=== PATIENT | female | born 1995 | race Caucasian/White ===

== ENCOUNTER → 2017-09-24 11:57 | Outpatient (CLI) | payer BC, SELFPAY ==
[2017-09-24 13:31] LABS: Color, Urine Yellow (Yellow); Glucose, Dipstick Normal (Normal); Ketone-Dipstick Negative (Negative); Leukocyte Esterase-Dipstick 25 /ul (Negative); Nitrite-Dipstick Positive (Negative); Occult Blood-Urine 10 /ul (Negative); Protein-Dipstick Negative (Negative); Specific Gravity, Urine 1.015 (1.002-1.030); Urine Bilirubin Dipstick Negative (Negative); Urine Clarity Sl. Cloudy (Clear); Urine Urobilinogen Normal (Normal); Urine pH 6.5 (5.0 - 8.0)
[2017-09-24 13:43] LABS: Amphetamine Urine VISTA NEGATIVE (<1000 ng/mL); Barbiturate Urine VISTA NEGATIVE (< 200 ng/mL); Benzodiazepine Urine VISTA NEGATIVE (< 200 ng/mL); Cocaine Urine VISTA NEGATIVE (< 300 ng/mL); Ecstacy Urine VISTA NEGATIVE (< 500 ng/mL); Methadone Urine VISTA NEGATIVE (< 300 ng/mL); PCP Urine VISTA NEGATIVE (< 25 ng/mL); THC Urine VISTA NEGATIVE (< 50 ng/mL); Vista UDS pH Range 6
[2017-09-24 15:21] LABS: Chlamydia Trachomatis by PCR Negative (Negative); Neisserai gonorrhoeae by PCR Negative (Negative); Probe Check PASS; Sample Adequacy Control PASS; Specimen Processing Control PASS
[2017-09-24 16:04] LABS: Free T3 3.2 pg/mL (2.18-3.98); T4 Free Direct 1.13 ng/dL (0.76-1.46); Thyroid Stim Hormone (TSH) 4.59 uIU/mL (0.358-3.74)
[2017-09-24 16:22] LABS: Absolute Neutrophil Count 6.5 X10^3/uL (2.0-7.7); Basophil# 0.02 X10^3/uL; Basophil% 0.2 % (0-1); Eosinophil# 0.07 X10^3/uL; Eosinophils% 0.8 % (0-5); Hematocrit 35.6 % (37-47); Hemoglobin 11.5 g/dl (12.0-15.0); Mean Corp Hgb Conc 32.3 g/gl (32-36); Mean Corpuscular Volume 68.1 fL (81-99); Mean Platelet Vol. 11.7 fl (6.2-12.0); Monocyte# 0.72 X10^3/uL; Monocyte% 8.2 % (0-10); Neutrophil % 74.2 % (47-70); Platelet Count 328 K/mm3 (150-450); RBC Distribution Width CV 15.7 % (11.6-14.6); RBC Distribution Width SD 38.5 fl (35.1-43.9); Red Blood Count 5.23 M/mm3 (4.2-5.4); White Blood Count 8.8 K/mm3 (4.4-11.0)
[2017-09-24 16:24] LABS: POSITIVE COUNT NO; POSITIVE DIFFERENTIAL NO; POSITIVE MORPHOLOGY NO
[2017-09-24 16:44] LABS: HIV - WCH Non-Reactive (Nonreactive); Rubella IgG 80.2 IU/mL
[2017-09-26 13:16] LABS: HEPATITIS B SURFACE AG Negative (Negative); Hep C Antibodies 0.2 s/co ratio (0.0-0.9)
[2017-10-01 01:08] LABS: Prenatal RPR NONREACTIVE (NONREACTIVE)
== END ==
PROVIDERS: Visit Provider Obstetrics & Gynecology
DX: Z34.81 Encounter for supervision of other normal pregnancy, first trimester (principal); Z12.4 Encounter for screening for malignant neoplasm of cervix; Z11.3 Encounter for screening for infections with a predominantly sexual mode of transmission
CPT/HCPCS: 36415; 80307; 81002; 84439; 84443; 84481; 85025; 86703; 86762; 86803; 87340; 87491; 87591; 88175; G0145

== ENCOUNTER → 2017-12-08 12:06 | Outpatient (CLI) | payer BC, SELFPAY | PROVIDERS: Visit Provider Obstetrics & Gynecology | DX: R30.0 Dysuria (principal) | CPT/HCPCS: 87086; 87088; 87186 ==

== ENCOUNTER → 2018-02-09 10:50 | Outpatient (CLI) | payer BC, SELFPAY ==
[2018-02-09 16:20] LABS: Glucose Challenge Gest 1H 50g 139 mg/dL (70-140)
[2018-02-09 16:28] LABS: Hematocrit 26.9 % (37-47); Hemoglobin 7.7 g/dl (12.0-15.0); Mean Corp Hgb Conc 28.6 g/gl (32-36); Mean Corpuscular Hgb 18.7 pg (27.0-32.0); Mean Corpuscular Volume 65.3 fL (81-99); Mean Platelet Vol. 10.2 fl (6.2-12.0); Platelet Count 192 K/mm3 (150-450); Red Blood Count 4.12 M/mm3 (4.2-5.4); White Blood Count 9.8 K/mm3 (4.4-11.0)
[2018-02-09 16:32] LABS: Scan Indicated on CBC? Y/N YES- FLAGS NOTED
[2018-02-09 17:16] LABS: Differential Comment SCANNED
== END ==
PROVIDERS: Visit Provider Obstetrics & Gynecology
DX: Z34.83 Encounter for supervision of other normal pregnancy, third trimester (principal)
CPT/HCPCS: 36415; 82950; 85027

== ENCOUNTER 2018-03-29 16:40 | Inpatient (IN) | payer BC, SELFPAY ==
[2018-03-29] VITALS (11 sets, daily range): BP systolic 75–132; BP diastolic 52–89; PULSE 50–87; RESP 16–20; TEMP 36.1–36.6; O2SAT 95–99; BMI 29.8
[2018-03-29] MEDS: Betamethasone/Betamethasone 30 MG/5 ML Vial 12 MG IM (16:12)
[2018-03-29] MEDS: Lactated Ringers 1,000 ML 50 ML IV (17:00)
[2018-03-29 17:40] LABS: Group B Strep DNA By PCR Negative (Negative)
[2018-03-29 17:42] LABS: Internal Control PASS; Probe Check PASS; Specimen Processing Control PASS
[2018-03-29 17:51] LABS: Hemoglobin 9.8 g/dl (12.0-15.0); Mean Corp Hgb Conc 29.7 g/gl (32-36); Mean Corpuscular Hgb 20.9 pg (27.0-32.0); Mean Corpuscular Volume 70.2 fL (81-99); Platelet Count 158 K/mm3 (150-450); RBC Distribution Width CV 26.8 % (11.6-14.6); RBC Distribution Width SD 65.6 fl (35.1-43.9); White Blood Count 7.9 K/mm3 (4.4-11.0)
[2018-03-29 17:56] LABS: Scan Indicated on CBC? Y/N YES- FLAGS NOTED
[2018-03-29 18:09] LABS: Differential Comment SCANNED
--- NOTE | 2018-03-29 18:14 | PCM.PN.BLA ---
Progress Note 36 1/7 wk EGA Sent in from ofc due to ? EFM/ NST there. CC of dec FM. IV fluid bolus given and attempted Acoustic stim without response from fetus. AVSS EFM 120-130s minimal variability. Pseudosinusoidal pattern at times. Several lates noted. Occasional variable CX favorable. UCs noted, irregular. A/P; 36 1/7 wk nonreassuring FHT. Minimal variability. no response to accoustic stim. Recommended primary C/S for nonreassuring heart rate tracing. BPP in ofc 01/02. Betamethasone given x one dose.
[2018-03-29] MEDS: Sodium Citrate/Citric Acid 30 ML UDC PO (18:26)
[2018-03-29] MEDS: Lactated Ringers 1,000 ML 999 ML IV (18:27)
--- NOTE | 2018-03-29 18:46 | PCM.DCCSEC ---
Discharge Diet: No Restrictions Discharge Activity: May not drive while taking narcotic pain medications., May Shower, May Take a Tub Bath Return to work on:: 05/16/18 May resume sexual activity in: 4-6 weeks Lifting Restrictions: 20 pounds Additional Activity Instructions:: Nothing in the vagina for 4-6 weeks. You may return to work/school in 6 weeks. Change Dressing in (Days):: 4 Remove Dressing in (days):: 4 Cleanse incision/area with: Soap & Water, Keep Dressing Clean & Dry Additional Instructions: If you experience any of the following, contact your healthcare provider. Bleeding that soaks a pad every hour for 2 hours Fever 100.4 or higher Unrelieved incision or abdominal pain Swelling, redness, discharge or bleeding from your incision Problems urinating (including inability to urinate or burning while urinating). Visual changes Severe headache Flu-like symptoms Pain or redness in one of both of your breasts Pain, warmth, tenderness or swelling in your legs, especially the calf area Frequent nausea and vomiting Symptoms of depression or anxiety If you experience any of the following, call 911 or go to the nearest Emergency Room. Chest pain Problems breathing Seizure activity Partial or complete paralysis of a body part, slurred speech, weakness or drooping of the face, or a sudden inability to walk or hold your balance Allergies/Adverse Reactions: Allergies No Known Allergies Allergy (Verified 12/30/15 02:07) Medications to take at Discharge Docusate Sodium [Colace] 100 mg PO DAILY PRN PRN #30 cap 03/29/18 Ferrous Gluconate 324 mg PO TID 03/29/18 Levothyroxine [Synthroid] 50 mcg PO DAILY 03/29/18 Naproxen [Naprosyn] 250 - 500 mg PO TID PRN PRN #30 tab 03/29/18 Oxycodone [Oxyir] 5 - 10 mg PO Q6H PRN PRN 7 Days #20 tablet 03/29/18 Vit No.130/Iron/FA [ Tablet] 1 tablet PO DAILY 03/29/18 The following prescriptions were given: Oxycodone [Oxyir] 5 - 10 mg PO Q6H PRN PRN 7 Days #20 tablet PRN Reason: Mod-Severe Pain (-05/04) Docusate Sodium [Colace] 100 mg PO DAILY PRN PRN #30 cap PRN Reason: Constipation Naproxen [Naprosyn] 250 - 500 mg PO TID PRN PRN #30 tab PRN Reason: Mild-Mod Pain (-12/02) Follow-Up: Call to make an appointment with your doctor for an incision check in 1-2 weeks. You will also need a 6 week post- follow up appointment. Test results from this visit will be discussed in further detail at your follow-up appointment, if applicable. Please Follow Up With: Geoffrey Gregg MD - [phone] When: Call to make an appointment for an incision check in 2 weeks. Primary Care Physician: Care Physician,No Primary [Primary Care Provider] -
[2018-03-29] MEDS: Cefazolin 2 GM in 0.9% Normal Saline 100 ML IV (18:52)
[2018-03-29] MEDS: Oxytocin 30 units/NS 500 ml 30 UNITS/500 ML IV.SOLN 167 UNITS IV (19:00)
[2018-03-29] MEDS: Methylergonovine 0.2 MG/ML Ampul IM (19:04)
--- NOTE | 2018-03-29 19:24 | PCM.OP.BLANK ---
Operative Report Date of Procedure: 03/29/18 Preoperative diagnosis: 36 2/7 wk EGA Nonreassuring FHT, decreased variability. Pseudosinusoidal rhythm , occasional late Unresponsive to interventions including: IV fluids, vibroacoustic stimulation. Postop diagnosis: 36 2/7 wk EGA Nonreassuring FHT, decreased variability. Pseudosinusoidal rhythm , occasional late Unresponsive to interventions including: IV fluids, vibroacoustic stimulation. Anesthesia: Spinal, Alvarado Grant CRNA Surgeon: Neelam Thakkar MD Garden Machinery Mechanic: JOSE Skinner EBL 800 cc Complications: none Drains: Mazariegos draining clear yellow appearing urine Fluids: replacement LR [employer] PRESENT for delivery: Dr. Wahl Findings: At amniotomy, copious clear fluid was noted. Payne viable male in vertex presentation. Baby was noted VERY pale at . Apgars 3/8/9, Baby weight: 6# 7 oz. There was a normal appearing uterus, fallopian tubes and ovaries bilaterally. PATH: Routine cord blood for typing collected. Routine cord gases were sent. Narrative account: After the risks, benefits and alternatives of the procedure were reviewed with the patient, informed consent was obtained. The patient was taken to the Operating room with an IV running, and placed in a seated position on the operating table for placement of the spinal. Once the spinal had been administered, she was briefly frog-legged for Mazariegos catheter placement, and then repositioned to dorsal supine position with leftward displacement of the uterus, and prepped and draped in the usual sterile fashion. Once the spinal was deemed adequate, a Pfannenstiel skin incision was created using the knife . The incision was carried down to the rectus fascia using the knife. The fascia was nicked in the midline. The fascial incision was extended bilaterally using curved Arthur scissors. The superior aspect of the fascial incision was grasped with Nayeli clamps and tented up and the underlying rectus abdominal muscles were dissected free. In a similar manner, the inferior aspect of the facial incision was grasped with Nayeli clamps tented up and the underlying rectus abdominal muscles were dissected free. The rectus abdominis muscles were in the midline and the peritoneum was identified and entered by blunt dissection high in the incision. The peritoneum was stretched laterally and a bladder blade was inserted. A bladder flap was created along the lower uterine segment with Metzenbaum scissors . The uterine incision was then created using Metzenbaum scissors. The operators fingertips were used to extend the uterine incision by blunt dissection in a caudad- cephalad orientation . Copious clear fluid was noted at amniotomy. The vertex was then delivered atraumatically through the incision. The OP and nares were bulb suctioned on the abdomen. The shoulders delivered easily . The cord clamped x two and cut. And the infant was handed off to the nurse awaiting delivery and then to Dr. Wahl immediately due to very poor tone, and extremely pale appearing . The baby had no spontaneous cry. The placenta was then delivered and set aside for later pathology review. The uterus was exteriorized and cleared of clots and debris . The uterine incision was repaired with 1 Vicryl in a running locked fashion. A second imbricating layer was then placed, using 1 Monocryl in running nonlocked fashion. horizontal mattress stitches of 1 Vicryl were placed along the entire incision. Excellent hemostasis was noted. At this point the uterus was returned to the abdominal cavity. The gutters were cleared of clots and debris and the incision at the uterus was inspected. Excellent hemostasis was noted. The peritoneal edges and rectus abdominis muscles were reapproximated in the midline with interrupted vertical mattress stitches of 1 Vicryl. Excellent hemostasis was noted at the subfascial space The fascia was closed in a running nonlocked fashion with a Stratofix. The Subcutaneous fatty tissue was Bovie cauterized as needed for hemostasis. This layer was then reapproximated in a single layer closure of running 3-0 Vicryl to eliminate space. The skin edges were closed in a Subcuticular stitch of 4-0 Monocryl. The incision was cleansed. Cavilon, Steristrips, and Mepilex dressing were applied to the skin . The patient was then transferred to the recovery room bed in stable condition after tolerating the procedure well. Sponge, lap, needle and instrument counts correct times two. Medications given preop and intraoperatively included: Ancef 2 gm IV given long distance operator to the operating room. The patient also received Pitocin given IV after cord clamp, and Toradol 30 mg IV times one. For a complete listing of medications given preop and intraoperatively, please see the anesthesia record.
[2018-03-29] MEDS: Nalbuphine 10 MG/ML Ampul 5 MG IV (21:59)
[2018-03-29] MEDS: Lactated Ringers 1,000 ML 100 ML IV (21:59)
[2018-03-30] VITALS (18 sets, daily range): BP systolic 104–129; BP diastolic 62–85; PULSE 51–78; RESP 16–20; TEMP 36.5–37; O2SAT 94–99
[2018-03-30] MEDS: Ketorolac 30 MG/ML Syringe IV ×4 (01:48→20:22)
[2018-03-30] MEDS: Nalbuphine 10 MG/ML Ampul 5 MG IV (04:02)
[2018-03-30] MEDS: Levothyroxine 50 MCG Tablet PO (05:49)
[2018-03-30 06:21] LABS: Hematocrit 32.8 % (37-47); Hemoglobin 9.8 g/dl (12.0-15.0); Mean Corp Hgb Conc 29.9 g/gl (32-36); Mean Corpuscular Hgb 20.9 pg (27.0-32.0); Mean Corpuscular Volume 69.8 fL (81-99); Platelet Count 156 K/mm3 (150-450); RBC Distribution Width CV 26.4 % (11.6-14.6); RBC Distribution Width SD 64.4 fl (35.1-43.9); White Blood Count 11.6 K/mm3 (4.4-11.0)
[2018-03-30 06:23] LABS: Scan Indicated on CBC? Y/N YES- FLAGS NOTED
[2018-03-30 06:40] LABS: Differential Comment SCANNED
--- NOTE | 2018-03-30 08:08 | PCM.PN.OB ---
Subjective: POD#1 Primary C/S nonreassuring FHT Pt doing OK. Pain control adequate. minimal bleeding. Hoping to go to [facility] today if possible to be with baby. baby transported there after delivery 2/2 severe anemia, Hgb 3. Kleihauer Betke test pending, at [facility]. - Physical Exam General: Alert, Oriented x3, Cooperative, No apparent distress HEENT: Atraumatic Neck: Supple Abdomen: Soft - Fundus firm NT at 2 cm inferior to umbilicus. Skin: Incision - CDI. mepilex dressing in place. no shadow drainage. Neurological: Cranial nerves II-XII grossly intact Psych/Mental Status: Normal Affect Vital Signs Temp Pulse Resp BP Pulse Ox 98.5 F 63 18 122/73 H 97 03/30/18 03:50 03/30/18 06:33 03/30/18 06:33 03/30/18 04:50 03/30/18 06:33 Oxygen Delivery Method Room Air Weight: 83.9 kg Body Mass Index (BMI) 29.8 Intake and Output for Last 24 Hours 03/28/18 03/29/18 03/30/18 23:59 23:59 23:59 Intake Total 200 / 200 1300 / 1300 Output Total 700 / 700 600 / 600 Balance -500 / -500 700 / 700 Laboratory Tests Past 24 Hrs 03/29/18 03/29/18 03/29/18 14:00 17:00 17:00 WBC 7.9 RBC 4.70 Hgb 9.8 L Hct 33.0 L MCV 70.2 L MCH 20.9 L MCHC 29.7 L RDW 26.8 H RDW Differential 65.6 H Plt Count 158 MPV TNP Differential Comment SCANNED Kleihauer-Betke F Hgb Group B Strep DNA Negative Specimen Comment Not Reportable Blood Type B POSITIVE Antibody Screen NEGATIVE 03/29/18 03/30/18 20:15 05:55 WBC 11.6 H RBC 4.70 Hgb 9.8 L Hct 32.8 L MCV 69.8 L MCH 20.9 L MCHC 29.9 L RDW 26.4 H RDW Differential 64.4 H Plt Count 156 MPV Differential Comment SCANNED Kleihauer-Betke F Hgb Pending Group B Strep DNA Specimen Comment Blood Type Antibody Screen Medical Necessity - Tobacco Use Smoking Status: Former smoker Assessment/Plan POD#1 Primary C/S for nonreassuring FHT Stable postop. Incision CDI. Hgb stable from preop. 9.8 gm/dl. which increased during pregancy from the 7.7 g/dl at 28 wks. ? fetomaternal transfusion. Infant at [facility] S/P transfusion for Hgb of 3 g/dl. Kleihauer Betke test pending Inc diet and activity as tolerated. Begin po meds. S/L IV. Needs to be off Toradol and all IV meds to be able to go to [facility], dischg from hospital. Advised of this. D/C Mazariegos for voiding trial. Continue care.
[2018-03-30] MEDS: Ferrous Sulfate 325 MG Tablet PO ×2 (08:17→18:43)
[2018-03-30] MEDS: Lactated Ringers 1,000 ML 100 ML IV (08:54)
[2018-03-30] MEDS: 0.9% Saline Lock 10 ML Syringe IV (20:22)
[2018-03-31] MEDS: Ketorolac 30 MG/ML Syringe IV (02:19)
[2018-03-31] MEDS: 0.9% Saline Lock 10 ML Syringe IV (02:19)
[2018-03-31 02:23] VITALS: BP 131/85; PULSE 67; RESP 18; TEMP 37.1; O2SAT 98
[2018-03-31] MEDS: Levothyroxine 50 MCG Tablet PO (06:30)
--- NOTE | 2018-03-31 07:51 | PCM.PN.OB ---
Subjective: POD#2 Primary C/S for nonreassuring FHT Stable postop. Would like to go home roshni as wants to go to [facility] to be with baby. Still getting Toradol q 6 hrs. - Physical Exam General: Alert, Oriented x3, Cooperative, No apparent distress HEENT: Atraumatic Neck: Supple Abdomen: Soft - Fundus firm NT inferior to umbilicus Skin: Incision - CDI. Mepilex without shadow drainage. Neurological: Cranial nerves II-XII grossly intact Psych/Mental Status: Normal Affect Vital Signs Temp Pulse Resp BP Pulse Ox 98.7 F 67 18 131/85 H 98 03/31/18 02:23 03/31/18 02:23 03/31/18 02:23 03/31/18 02:23 03/31/18 02:23 Oxygen Delivery Method Room Air Weight: 83.9 kg Body Mass Index (BMI) 29.8 Intake and Output for Last 24 Hours 03/29/03/30/18 03/31/18 23:59 23:59 23:59 Intake Total 200 / 200 3449 / 3449 Output Total 700 / 700 2475 / 2475 350 / 350 Balance -500 / -500 974 / 974 -350 / -350 Medical Necessity - Tobacco Use Smoking Status: Former smoker Assessment/Plan POD#2 Primary C/S for nonreassuring FHT Stable postop. Incision CDI. Hgb stable from preop. 9.8 gm/dl. which increased during pregancy from the 7.7 g/dl at 28 wks. ? fetomaternal transfusion. at [facility] S/P transfusion for Hgb of 3 g/dl. Kleihauer Betke test pending Dischg home today if pain control adequate on all po meds. Reviewed incision care. RTO in 2 wk for postop incision check.
--- NOTE | 2018-03-31 07:53 | PCM.DC.SUM ---
Hospital Course and Treatment Operations: - - Primary low transverse C/S Summary of Care Provided: The patient is a 22 year old female at term presented to ofc with CC of no movement. nonreassuring NST in ofc, with BPP of 6/10. Sent to OB for monitoring. Continued nonreassuring FHR tracing, with dec variability. no accelerations. No response to IV fluids or vibroacoustic stimulator. Pseudosinusoidal pattern with occasional late or variable. Advised proceed to C/S . Procedure uncomplicated with clear copious fluid at amniotomy. Payne viable , very pale appearing male Ap Dr. Schultz, resp therapy all present for delivery. [facility] with Hgb of 3 g/dl. Kleihauer Betke pending. Patent's postoperative course uneventful. Hgb remained stable pre and postop at 9.8 g/dl. (inc from her 28 wk lab of 7.7g/dl) Dischg home POD#2 per pt request. Benign exam. Discharge Diet: No Restrictions Discharge Activity: May not drive while taking narcotic pain medications., May Shower, May Take a Tub Bath Return to work on:: 05/16/18 May resume sexual activity in: 4-6 weeks Additional Activity Instructions:: Nothing in the vagina for 4-6 weeks. You may return to work/school in 6 weeks. Change Dressing in (Days):: 4 Remove Dressing in (days):: 4 Cleanse incision/area with: Soap & Water, Keep Dressing Clean & Dry Home Medications: Medications to take at Discharge Docusate Sodium [Colace] 100 mg PO DAILY PRN PRN #30 cap 03/29/18 Ferrous Gluconate 324 mg PO TID 03/29/18 Levothyroxine [Synthroid] 50 mcg PO DAILY 03/29/18 Naproxen [Naprosyn] 250 - 500 mg PO TID PRN PRN #30 tab 03/29/18 Oxycodone [Oxyir] 5 - 10 mg PO Q6H PRN PRN 7 Days #20 tablet 03/29/18 Vit No.130/Iron/FA [ Tablet] 1 tablet PO DAILY 03/29/18 Following Prescrptions Were Given to Patient: Oxycodone [Oxyir] 5 - 10 mg PO Q6H PRN PRN 7 Days #20 tablet PRN Reason: Mod-Severe Pain (4-05/04) Docusate Sodium [Colace] 100 mg PO DAILY PRN PRN #30 cap PRN Reason: Constipation Naproxen [Naprosyn] 250 - 500 mg PO TID PRN PRN #30 tab PRN Reason: Mild-Mod Pain (1-12/02) Primary Care Physician: Care Physician,No Primary [Primary Care Provider] - Please Follow Up With: Geoffrey Gregg MD - [phone] When: Call to make an appointment for an incision check in 2 weeks. Medical Necessity - Tobacco Use Smoking Status: Former smoker Meaningful Use Info Meaningful Use Diagnoses (Choose all that apply): None applicable
--- NOTE | 2018-03-31 07:58 | DS.PCM_ITS ---
Hospital Course and Treatment Operations: - - Primary low transverse C/S Summary of Care Provided: The patient is a 22 year old female at term presented to ofc with CC of no movement. nonreassuring NST in ofc, with BPP of 6/10. Sent to OB for monitoring. Continued nonreassuring FHR tracing, with dec variability. no accelerations. No response to IV fluids or vibroacoustic stimulator. Pseudosinusoidal pattern with occasional late or variable. Advised proceed to C/S . Procedure uncomplicated with clear copious fluid at amniotomy. Payne viable , very pale appearing male Ap Dr. Schultz, resp therapy all present for delivery. [facility] with Hgb of 3 g/dl. Kleihauer Betke pending. Patent's postoperative course uneventful. Hgb remained stable pre and postop at 9.8 g/dl. (inc from her 28 wk lab of 7.7g/dl) Dischg home POD#2 per pt request. Benign exam. Discharge Diet: No Restrictions Discharge Activity: May not drive while taking narcotic pain medications., May Shower, May Take a Tub Bath Return to work on:: 05/16/18 May resume sexual activity in: 4-6 weeks Additional Activity Instructions:: Nothing in the vagina for 4-6 weeks. You may return to work/school in 6 weeks. Change Dressing in (Days):: 4 Remove Dressing in (days):: 4 Cleanse incision/area with: Soap & Water, Keep Dressing Clean & Dry Home Medications: Medications to take at Discharge Docusate Sodium [Colace] 100 mg PO DAILY PRN PRN #30 cap 03/29/18 Ferrous Gluconate 324 mg PO TID 03/29/18 Levothyroxine [Synthroid] 50 mcg PO DAILY 03/29/18 Naproxen [Naprosyn] 250 - 500 mg PO TID PRN PRN #30 tab 03/29/18 Oxycodone [Oxyir] 5 - 10 mg PO Q6H PRN PRN 7 Days #20 tablet 03/29/18 Vit No.130/Iron/FA [ Tablet] 1 tablet PO DAILY 03/29/18 Following Prescrptions Were Given to Patient: Oxycodone [Oxyir] 5 - 10 mg PO Q6H PRN PRN 7 Days #20 tablet PRN Reason: Mod-Severe Pain (4-05/04) Docusate Sodium [Colace] 100 mg PO DAILY PRN PRN #30 cap PRN Reason: Constipation Naproxen [Naprosyn] 250 - 500 mg PO TID PRN PRN #30 tab PRN Reason: Mild-Mod Pain (1-12/02) Primary Care Physician: Care Physician,No Primary [Primary Care Provider] - Please Follow Up With: Geoffrey Gregg MD - [phone] When: Call to make an appointment for an incision check in 2 weeks. Medical Necessity - Tobacco Use Smoking Status: Former smoker Meaningful Use Info Meaningful Use Diagnoses (Choose all that apply): None applicable
[2018-03-31] MEDS: Ferrous Sulfate 325 MG Tablet PO (09:15)
[2018-03-31] MEDS: Naproxen 250 MG Tablet PO (09:15)
[2018-03-31 09:17] VITALS: BP 124/79; PULSE 69; RESP 16; TEMP 37; O2SAT 98
[2018-03-31 11:09] LABS: Kleihauer-Betke POSITIVE
--- NOTE | 2018-03-31 11:51 | NURSING ---
infant transferred to [facility] after delivery.
== END 2018-03-31 14:40 | disposition home or self-care (01) | DRG 765 ==
LOC: WPOUT 16:45 → WP 19:18
PROVIDERS: Obstetrics & Gynecology; Student in an Organized Health Care Education/Training Program; Admitting Provider Obstetrics & Gynecology; Visit Provider Obstetrics & Gynecology
DX: O76 Abnormality in fetal heart rate and rhythm complicating labor and delivery (principal); O60.14X0 Preterm labor third trimester with preterm delivery third trimester, not applicable or unspecified; O36.8330 Maternal care for abnormalities of the fetal heart rate or rhythm, third trimester, not applicable or unspecified; O99.02 Anemia complicating childbirth; D64.9 Anemia, unspecified; O99.284 Endocrine, nutritional and metabolic diseases complicating childbirth; E03.9 Hypothyroidism, unspecified; Z3A.36 36 weeks gestation of pregnancy; Z37.0 Single live birth; Z87.891 Personal history of nicotine dependence; Z87.59 Personal history of other complications of pregnancy, childbirth and the puerperium
CPT/HCPCS: 59025; 59050; 85027; 85460; 86850; 86900; 87081; 87653; 99218; J7120; A4216; G0378; J0702

== ENCOUNTER → 2018-11-24 14:51 | Outpatient (CLI) | payer BC, SELFPAY ==
[2018-03-29 15:37] VITALS: BMI 29.8
[2018-11-24 15:52] LABS: Absolute Lymphocyte Count 1.37 X10^3/ul (0.83-4.51); Absolute Neutrophil Count 7.8 X10^3/uL (2.0-7.7); Basophil# 0.02 X10^3/uL; Basophil% 0.2 % (0-1); Differential Indicated SCAN CRITERIA MET; Eosinophil# 0.19 X10^3/uL; Eosinophils% 1.8 % (0-5); Hematocrit 31.8 % (37-47); Hemoglobin 10.1 g/dl (12.0-15.0); Lymphocyte # 1.37 X10^3/ul (4.0); Lymphocyte % 13.2 % (19-41); Mean Corp Hgb Conc 31.8 g/gl (32-36); Mean Corpuscular Hgb 22.9 pg (27.0-32.0); Mean Corpuscular Volume 72.1 fL (81-99); Mean Platelet Vol. 10.3 fl (6.2-12.0); Monocyte# 0.82 X10^3/uL; Monocyte% 7.9 % (0-10); Neutrophil # 7.82 X10^3/uL (2.7-7.7); Neutrophil % 75.6 % (47-70); POSITIVE COUNT NO; POSITIVE DIFFERENTIAL NO; POSITIVE MORPHOLOGY YES; Platelet Count 180 K/mm3 (150-450); RBC Distribution Width CV 14.5 % (11.6-14.6); RBC Distribution Width SD 38.3 fl (35.1-43.9); Red Blood Count 4.41 M/mm3 (4.2-5.4); White Blood Count 10.4 K/mm3 (4.4-11.0)
[2018-11-24 16:01] LABS: Color, Urine Yellow (Yellow); Glucose, Dipstick Normal (Normal); Ketone-Dipstick Negative (Negative); Leukocyte Esterase-Dipstick 500 /ul (Negative); Nitrite-Dipstick Positive (Negative); Occult Blood-Urine Negative /ul (Negative); Protein-Dipstick Negative (Negative); Specific Gravity, Urine 1.015 (1.002-1.030); Urine Bilirubin Dipstick Negative (Negative); Urine Clarity Sl. Cloudy (Clear); Urine Urobilinogen Normal (Normal); Urine pH 6.5 (5.0 - 8.0)
[2018-11-24 16:17] LABS: Thyroid Stim Hormone (TSH) 4.67 uIU/mL (0.358-3.74)
[2018-11-24 16:20] LABS: Anisocytosis 1+; Platelet Estimate ADEQUATE (ADEQ)
[2018-11-24 16:21] LABS: Microcytosis 1+; Ovalocyte RARE
[2018-11-24 16:47] LABS: Amphetamine Urine VISTA NEGATIVE (<1000 ng/mL); Barbiturate Urine VISTA NEGATIVE (< 200 ng/mL); Benzodiazepine Urine VISTA NEGATIVE (< 200 ng/mL); Cocaine Urine VISTA NEGATIVE (< 300 ng/mL); Ecstacy Urine VISTA NEGATIVE (< 500 ng/mL); Methadone Urine VISTA NEGATIVE (< 300 ng/mL); PCP Urine VISTA NEGATIVE (< 25 ng/mL); THC Urine VISTA NEGATIVE (< 50 ng/mL); Vista UDS pH Range 6
[2018-11-24 16:58] LABS: HIV - WCH Non-Reactive (Nonreactive); Rubella IgG 86.9 IU/mL
[2018-11-24 18:00] LABS: Chlamydia Trachomatis by PCR Negative (Negative); Neisserai gonorrhoeae by PCR Negative (Negative); Probe Check PASS; Sample Adequacy Control PASS; Specimen Processing Control PASS
[2018-11-25 01:35] LABS: Prenatal RPR NONREACTIVE (NONREACTIVE)
[2018-11-25 13:58] LABS: Free T3 2.3 pg/mL (2.18-3.98); T4 Free Direct 0.97 ng/dL (0.76-1.46)
[2018-11-26 08:45] LABS: HEPATITIS B SURFACE AG Negative (Negative); Hep C Antibodies <0.1 s/co ratio (0.0-0.9)
== END ==
PROVIDERS: Visit Provider Obstetrics & Gynecology
DX: Z34.82 Encounter for supervision of other normal pregnancy, second trimester (principal); Z11.3 Encounter for screening for infections with a predominantly sexual mode of transmission
CPT/HCPCS: 36415; 80307; 81002; 84439; 84443; 84481; 85025; 86703; 86762; 86803; 87340; 87491; 87591

== ENCOUNTER → 2018-12-23 13:25 | Outpatient (CLI) | payer BC, SELFPAY ==
[2018-12-23 15:49] LABS: Hematocrit 32.6 % (37-47); Hemoglobin 10.2 g/dl (12.0-15.0); Mean Corp Hgb Conc 31.3 g/gl (32-36); Mean Corpuscular Hgb 22.5 pg (27.0-32.0); Mean Platelet Vol. 11.4 fl (6.2-12.0); Platelet Count 203 K/mm3 (150-450); RBC Distribution Width CV 16.3 % (11.6-14.6); Red Blood Count 4.53 M/mm3 (4.2-5.4)
[2018-12-23 15:56] LABS: Glucose Challenge Gest 1H 50g 144 mg/dL (70-140)
[2018-12-23 15:57] LABS: Scan Indicated on CBC? Y/N NO
== END ==
PROVIDERS: Visit Provider Obstetrics & Gynecology
DX: Z34.83 Encounter for supervision of other normal pregnancy, third trimester (principal)
CPT/HCPCS: 36415; 82950; 85027

== ENCOUNTER → 2019-01-25 06:56 | Outpatient (CLI) | payer BC, MEDICAID, SELFPAY ==
[2019-01-25 08:04] LABS: Glucose GTT-Gestation. Fasting 83 mg/dL (<105)
[2019-01-25 08:54] LABS: Glucose GTT-Gestational 1 Hr 173 mg/dL (<190)
[2019-01-25 10:43] LABS: Glucose GTT-Gestational 2 Hr 159 mg/dL (<165)
[2019-01-25 11:40] LABS: Glucose GTT-Gestational 3 Hr 107 L (<145)
== END ==
PROVIDERS: Referring Provider Obstetrics & Gynecology; Visit Provider Obstetrics & Gynecology
DX: O24.912 Unspecified diabetes mellitus in pregnancy, second trimester (principal); Z3A.00 Weeks of gestation of pregnancy not specified
CPT/HCPCS: 36415; 82951; 82952

== ENCOUNTER 2019-03-08 05:25 | Inpatient (IN) | payer BC, MEDICAID, SELFPAY ==
[2018-03-29 15:37] VITALS: BMI 29.8
[2019-03-08] VITALS (22 sets, daily range): BP systolic 108–130; BP diastolic 61–87; PULSE 66–88; RESP 14–17; TEMP 36.3–37.1; O2SAT 95–100; BMI 30.4
[2019-03-08] MEDS: Lactated Ringers 1,000 ML 999 ML IV (05:50)
[2019-03-08 06:28] LABS: Absolute Lymphocyte Count 1.77 X10^3/uL (0.83-4.51); Absolute Neutrophil Count 7.1 X10^3/uL (2.0-7.7); Basophil# 0.04 X10^3/uL; Basophil% 0.4 % (0-1); Eosinophil# 0.12 X10^3/uL; Eosinophils% 1.2 % (0-5); Hematocrit 33.3 % (37-47); Hemoglobin 10.4 g/dL (12.0-15.0); Lymphocyte # 1.77 X10^3/ul (4.0); Lymphocyte % 17.2 % (19-41); Mean Corp Hgb Conc 31.2 g/dL (32-36); Mean Corpuscular Hgb 21.4 pg (27.0-32.0); Mean Corpuscular Volume 68.5 fL (81-99); Mean Platelet Vol. 11.1 fl (6.2-12.0); Monocyte# 0.95 X10^3/uL; Monocyte% 9.2 % (0-10); NRBC Flagged by Analyzer 0 % (0-5); Neutrophil # 7.14 X10^3/uL (2.7-7.7); Neutrophil % 69.5 % (47-70); Platelet Count 169 K/mm3 (150-450); RBC Distribution Width CV 17.5 % (11.6-14.6); RBC Distribution Width SD 41.1 fl (35.1-43.9); Red Blood Count 4.86 M/mm3 (4.2-5.4); White Blood Count 10.3 K/mm3 (4.4-11.0)
[2019-03-08 06:30] LABS: Prothrombin Time (Protime)PT. 12.9 SECONDS (11.7-14.9)
[2019-03-08 06:31] LABS: Partial Thromboplast Time 24.8 Seconds (24.1-36.2)
[2019-03-08] MEDS: Lactated Ringers 1,000 ML 150 ML IV (06:54)
[2019-03-08] MEDS: Sodium Citrate/Citric Acid 30 ML UDC PO (07:14)
[2019-03-08] MEDS: Cefazolin 2 GM in 0.9% Normal Saline 100 ML IV (07:19)
--- NOTE | 2019-03-08 07:20 | HP.PCM_ITS ---
- Problem List (1) 39 weeks gestation of Status: Acute History Date of Admission: 03/08/19 - Final TIRSO: 03/15/19 Final TIRSO Source: US <20 weeks Gestational age: 39 Weeks and 3 Days History of this : This is a 23 year-old, G [3], P [2], at 39 weeks gestational age presenting for scheduled repeat section with bilateral tubal ligation. Medical History: Medical History (Last Updated 03/08/19 @ 08:48 by Carlota Ann MD) Anemia affecting O99.019 Asthma J45.909 Hypothyroidism E03.9 Surgical History: Surgical History (Last Updated 03/11/19 @ 09:18 by Carlota Ann MD) Previous section Z98.891 Allergies No Known Allergies Allergy (Verified 03/08/19 05:39) Home Medications: Home Medications Ferrous Gluconate 324 mg PO BID 03/29/18 Levothyroxine [Synthroid] 50 mcg PO DAILY 03/29/18 Ibuprofen [Motrin] 600 mg PO Q6H PRN PRN #30 tab 03/10/19 Oxycodone [Oxyir] 5 - 10 mg PO Q4H PRN PRN 7 Days #20 tab 03/10/19 Senna/Docusate Sodium [Senokot-S] 1 - 2 tab PO DAILY PRN #60 tab 03/10/19 Smoking Status: Former smoker Alcohol: None Number of Fetus(es): 1 NST - FHR Rate Baby A Baseline: 145 bpm History Past Pregnancies: Past Pregnancies Delivery Date Name GA/Weeks Outcome Route Weight Infant Gender Labor Length Anesthesia Delivery Location Provider FOB 05/2016 38 Living 7lb F 12 Epidural [place] 03/2018 36 Living 6lb 7oz M Spinal Keli Labs: Mom's Problem List Problem Status Onset Code 39 weeks gestation of Acute Z3A.39 Mom's Labs & Results 03/08/19 03/08/19 03/08/19 05:50 05:50 05:50 WBC 10.3 RBC 4.86 Hgb 10.4 L Hct 33.3 L MCV 68.5 L MCH 21.4 L MCHC 31.2 L RDW Std Deviation 41.1 RDW Coeff of Vivian 17.5 H Plt Count 169 MPV 11.1 Immature Gran % (Auto) 2.500 H Neut % (Auto) 69.5 Lymph % (Auto) 17.2 L Cottle % (Auto) 9.2 Eos % (Auto) 1.2 Baso % (Auto) 0.4 Absolute Neuts (auto) 7.1 Absolute Lymphs (auto) 1.77 Nucleated RBC % 0 PT 12.9 INR 1.0 APTT 24.8 Urine Opiates Screen Urine Methadone Screen Ur Barbiturates Screen Ur Phencyclidine Scrn Ur Amphetamines Screen U Methamphetamin-MDMA U Benzodiazepines Scrn Urine Cocaine Screen U Cannabinoids Screen Ur Drug Screen Comment Blood Type B POSITIVE Antibody Screen NEGATIVE 03/08/19 07:00 WBC RBC Hgb Hct MCV MCH MCHC RDW Std Deviation RDW Coeff of Vivian Plt Count MPV Immature Gran % (Auto) Neut % (Auto) Lymph % (Auto) Cottle % (Auto) Eos % (Auto) Baso % (Auto) Absolute Neuts (auto) Absolute Lymphs (auto) Nucleated RBC % PT INR APTT Urine Opiates Screen NEGATIVE Urine Methadone Screen NEGATIVE Ur Barbiturates Screen NEGATIVE Ur Phencyclidine Scrn NEGATIVE Ur Amphetamines Screen NEGATIVE U Methamphetamin-MDMA NEGATIVE U Benzodiazepines Scrn NEGATIVE Urine Cocaine Screen NEGATIVE U Cannabinoids Screen NEGATIVE Ur Drug Screen Comment Blood Type Antibody Screen Course Did the patient receive Yes care? Labs Blood Type: B RH: POSITIVE RPR/VDRL/Syphilis Nonreactive Rubella status Immune HbSAg Negative Date Done: 11/24/18 Chlamydia Negative Gonorrhea Negative HIV/AIDS Non-Reactive Group B Strep: Not Done Current Obstetrical History Gestational Diabetes No Incompetent Cervix No Infertility No IUGR No Macrosomia No Hypertension/Pre-eclampsia No Placenta Previa/Abruption No PTL/PROM No Uterine anomaly No Oligohydramnios No Polyhydramnios No Multiple gestation No Past Medical History Asthma Yes: uses emergency inhaler prn, hasn't used in a long time Diabetes No Hypertension No Heart disease No Mitral valve prolapse No Neurologic/Seizure disorder/ No Migraines Kidney disease No Liver disease No Varicosities No Clotting disorders/Hx of DVT No Thyroid Dysfunction Yes: hypothyroidism Other medical diseases No Psychiatric disorders No Major trauma No Abnormal PAP smear Yes: 2016 Sleep apnea No Mammogram in the last 2 years No Enter DETAILS of medical Cleft Lip; diagnosed in high school, no surgical history correction Social History Marital Status: SINGLE Alleged father Helio King Smoking Yes Smoking Status Former smoker Expected Infant Delivery Method: Scheduled Section Describe any other labor & delivery plans:: sterilization desired Physical Exam Vitals: avss General: Alert, Oriented x3, Cooperative, No apparent distress HEENT: Atraumatic, Normocephalic Cardiovascular: Regular rate, Regular Rhythm, Normal S1, Normal S2 Lungs: Clear to auscultation, Normal air movement Abdomen: Soft, Non Tender, Non-Distended, Gravid Extremities:: No edema Neurological: Neuro grossly intact SLIDE FASTENERS INSPECTOR: Normal external genitalia Estimated gestational size: Appropriate for gestational size Presentation: Cephalic Assessment/Plan All Active Problems (Last Updated 03/08/19 @ 08:48 by Carlota Ann MD) 39 weeks gestation of (Acute) This is a 23 year-old, G [3], P [2], at 39 weeks gestational age. Proceed with section and BTL as planned
[2019-03-08 07:35] LABS: Amphetamine Urine VISTA NEGATIVE (<1000 ng/mL); Barbiturate Urine VISTA NEGATIVE (< 200 ng/mL); Benzodiazepine Urine VISTA NEGATIVE (< 200 ng/mL); Cocaine Urine VISTA NEGATIVE (< 300 ng/mL); Ecstacy Urine VISTA NEGATIVE (< 500 ng/mL); Methadone Urine VISTA NEGATIVE (< 300 ng/mL); PCP Urine VISTA NEGATIVE (< 25 ng/mL); THC Urine VISTA NEGATIVE (< 50 ng/mL); Vista UDS pH Range 5
[2019-03-08] MEDS: Oxytocin 30 units/NS 500 ml 30 UNITS/500 ML IV.SOLN 167 UNITS IV (07:53)
[2019-03-08] MEDS: Lactated Ringers 1,000 ML 100 ML IV ×2 (08:30→18:03)
--- NOTE | 2019-03-08 08:38 | OP.PCM_ITS ---
Problem List (1) 39 weeks gestation of Status: Acute Report of Operation Date of Procedure: 03/08/19 Pre-Operative Diagnosis: 39 weeks gestation, prior section, sterilization request Post-Operative Diagnosis: 39 weeks gestation, prior section, sterilization request Description of Surgical Findings:: Normal tubes, ovaries and uterus Male infant 3845 g job setter honing: Tiffanie Hernandez Type of Anesthesia:: Spinal Anesthesiologist: Alvarado Grant - Complications None Delivery Classification: Scheduled Final TIRSO: 03/15/19 Final TIRSO Source: US <20 weeks Gestational age: 39 Weeks and 0 Days Indications: 23yo @ 39wga history of single prior section presents for scheduled repeat with bilateral tubal ligation. She is counseled regarding risks, benefits, indications and alternatives. She declined trial of labor and desire to proceed as scheduled. Indications for : Repeat Elective , Desires elective sterilization Description of Procedure: The patient was taken to the operating room and spinal analgesia was administere d. She is placed in a dorsal supine position with left lateral tilt. The perineum and abdomen were prepped and draped in sterile fashion. And the spinal was found to be adequate. A Pfannenstiel incision was made using a scalpel and brought down to incise the subcutaneous tissue and rectus fascia at the midline. Subcutaneous tissue was bluntly dissected off the fascia laterally. The fascial incision was dissected laterally and cephalad using curved Arthur scissors. The superior leaflet of the rectus fascia was grasped using Nayeli clamps and bluntly dissected and sharply dissected from the underlying rectus muscle. In a similar fashion the inferior rectus fascia was dissected from the underlying muscle. The rectus muscles were bluntly at the midline. The peritoneum was identified and entered [sharply]. The bladder blade was placed into the abdomen and the vesicouterine peritoneal fold identified. The fold was incised and a bladder flap created. Bladder blade was then repositioned to the abdomen. A low transverse hysterotomy was made using the [Metzenbaum scissors] to level of the membranes. The hysterotomy was extended bluntly cephalad and caudad. The membranes were then ruptured revealing clear fluid. The head was elevated and brought to the level of the hysterotomy and the delivered revealing vigorous [male] infant. The cord was doubly clamped and cut after 60 seconds. The was passed to awaiting [nursery personnel]. The placenta was [expressed] from the uterus and appeared intact on inspection. The uterus was exteriorized and cleared of debris. The hysterotomy was then repaired using 0 Vicryl running lock suture. The adnexa were inspected and normal in appearance. The right tube was isolated and the mesosalpinx incised using the Bovie. A proximal distal segment of the ampullary tube were ligated using 0 plain gut suture. The segment was excised. In similar fashion in [place] tubal ligation was also performed on the left. The uterus and adnexa were returned to the abdomen. Enterotomy was reinspected and hemostatic. The bladder blade was removed. The anterior cul-de-sac was cleared of debris. The peritoneum and rectus muscles were reapproximated using 2-0 Vicryl running suture. The rectus fascia was closed using 0 Vicryl running suture. The subcutaneous tissue was sponge irrigated and small capillary bleeding controlled using the Bovie device. The subcutaneous tissue was reapproximated using 2-0 Vicryl. The skin was closed using 4-0 Monocryl subcuticularly the CUSTODIAN under my supervision. Mepilex occlusive dressing was placed over the incision. The fundus was firm. The patient was then transferred to the recovery room without complication. Sponge, instrument, and needle counts were correct ?2. Amniotic Membrane Rupture Type: Artificial Amniotic Fluid Description: Clear Placenta Disposition: [facility] Drain: Mazariegos to straight drain Fluids Replaced: 1500 ml Cord Entanglement: None Nuchal Cord Compression: Without compression Cord Vessel Description: 3 Vessels Esitmated Blood Loss (ml): 500 Infant Gender: Male (1 minute): 9 (5 minute): 9 Delayed cord clamping: Yes Pre-op Antibiotic Given: Ancef 2 grams IV x1 Pt instructed on risks of surgery: Bleeding, Anesthesia Risks, Infection, Permanency, Failure Rate of 1 to 2%, Injury to surrounding structure(s) including bowel and bladder, Availability of other non-permanent control options Complications: None - Admit VTE Documentation VTE Present on Admission: No VTE Mechan Device Prophylaxis: SCD's
--- NOTE | 2019-03-08 09:01 | FALS_PTH ---
PATIENT: ANGELICA BROWER LOC: [facility] U#:[id number] AGE/SX: 23/F ROOM: WP005 RE03/08/[address]: Dr. Carlota Em MD : 1995 BED: 1 DIS: 03/10/2019 SPEC #: [id number] RECD: 03/08/19 09:13 STATUS: MAGDALENA REMariaelena #: [id number] SÁNCHEZ: 03/08/19 09:[address]: Carlota Guerrero DEPT: SURGICAL PATHOLOGY RECD BY: Adrian Meyers ENTERED: 03/08/19 09:38 SP TYPE: FALL TUBES OTHR DR: No Primary Care Phys Tissues: Fallopian tube Procedures: Surgery Specimen Level II HEADER OPERATION: Tubal ligation PRE-OP DIAGNOSIS: Sterilization TISSUE SUBMITTED: Fallopian tubes MICROSCOPIC DIAGNOSIS Right and left fallopian tubes, bilateral partial salpingectomies: No pathologic diagnosis. AM:clayton 03/09/19 MICROSCOPIC DESCRIPTION Slides are reviewed. GROSS DESCRIPTION Received is one container labeled with the patient's name and designated bilateral fallopian tubes, left - suture, right - no suture. The specimen consists of two tubular pieces of zeng soft tissue with the left tube identified with a suture. The right fallopian tube measures 1.5 cm in length and 0.7 cm in diameter. The left fallopian tube measures 2 cm in length and 0.6 cm in diameter. The entire specimen is submitted in two cassettes as follows: 1 - right fallopian tube, 2 - left fallopian tube. Both pieces will be sectioned at the time of embedding. / SJ:rg 03/08/19 TC:4 CPT: 37670 x2
[2019-03-08 09:10] LABS: Pathology Specimen OB SEE PATHOLOGY REPORT
[2019-03-08] MEDS: Levothyroxine 50 MCG Tablet PO (10:18)
[2019-03-08] MEDS: Ondansetron 4 MG/2 ML Vial IV (11:57)
[2019-03-08] MEDS: Ketorolac 30 MG/ML Syringe IV ×3 (11:57→23:54)
--- NOTE | 2019-03-08 14:54 | NURSING ---
report given to RAH Zimmerman at 1045.
--- NOTE | 2019-03-08 17:21 | NURSING ---
1710 pt oob up to br for pericare; pt gait steady; pt to chair
[2019-03-09] VITALS (8 sets, daily range): BP systolic 108–125; BP diastolic 62–80; PULSE 61–84; RESP 15–18; TEMP 36.3–37.1; O2SAT 97–100
[2019-03-09] MEDS: 0.9% Saline Lock 10 ML Syringe IV ×2 (05:45→11:23)
[2019-03-09] MEDS: Ketorolac 30 MG/ML Syringe IV ×2 (05:45→11:23)
[2019-03-09] MEDS: Levothyroxine 50 MCG Tablet PO (05:46)
[2019-03-09 06:06] LABS: Hematocrit 29.4 % (37-47); Mean Corp Hgb Conc 30.6 g/dL (32-36); Mean Corpuscular Hgb 21.3 pg (27.0-32.0); Mean Corpuscular Volume 69.5 fL (81-99); Mean Platelet Vol. 11.1 fl (6.2-12.0); Platelet Count 136 K/mm3 (150-450); RBC Distribution Width CV 17.3 % (11.6-14.6); RBC Distribution Width SD 42.8 fl (35.1-43.9); Red Blood Count 4.23 M/mm3 (4.2-5.4); White Blood Count 8.6 K/mm3 (4.4-11.0)
--- NOTE | 2019-03-09 08:00 | PCM.PN.OB ---
Subjective: Entry for 03/09/19 approximatley 0800h Pain well controlled. OOB. Tolerates PO without nausea or vomiting. Passing flatus. Denies heavy lochia. Objective: AVSS - Physical Exam General: Alert, Oriented x3, Cooperative, No apparent distress HEENT: Atraumatic, Normocephalic Lungs: Clear to auscultation, Normal air movement Cardiovascular: Regular rate, Regular Rhythm, Normal S1, Normal S2 Abdomen: Bowel Sounds Present, Soft, Non Tender, Non-Distended, - - fundus firm and nontender, incisional dressing c/d/i Extremities: No edema, No Calf Tenderness Neurological: Neuro grossly intact Psych/Mental Status: Normal Affect, Appropriate, Alert and oriented to time, place, person, mood and affect Vital Signs Temp Pulse Resp BP Pulse Ox 97.3 F L 75 18 125/85 H 99 03/10/19 19:40 03/10/19 19:40 03/10/19 19:40 03/10/19 19:40 03/10/19 19:40 Oxygen Delivery Method Room Air Weight: 85.5 kg Body Mass Index (BMI) 30.4 Intake and Output for Last 24 Hours 03/09/19 03/10/19 03/11/19 23:59 23:59 23:59 Output Total 2400 / 2400 Balance -2400 / -2400 Medical Necessity - Tobacco Use Smoking Status: Former smoker Assessment/Plan All Active Problems (Last Updated 03/08/19 @ 08:48 by Carlota Ann MD) 39 weeks gestation of (Acute) This is a 23 year-old, G [3], P [3] POD#1 s/p RLTCS, BTL doing well. -Rh positive -Routine postop care
[2019-03-09] MEDS: oxyCODONE 5 MG Tablet PO (10:26)
[2019-03-09] MEDS: Ibuprofen 600 MG Tablet PO (18:36)
[2019-03-10 01:53] VITALS: BP 116/83; PULSE 65; RESP 16; TEMP 37; O2SAT 98
[2019-03-10] MEDS: Ibuprofen 600 MG Tablet PO ×2 (02:00→20:16)
[2019-03-10] MEDS: Acetaminophen 500 MG Tablet 1000 MG PO (03:14)
[2019-03-10] MEDS: Levothyroxine 50 MCG Tablet PO (05:54)
[2019-03-10 08:05] VITALS: BP 112/70; PULSE 59; RESP 18; TEMP 36.8; O2SAT 99
[2019-03-10 14:30] VITALS: BP 120/77; PULSE 56; RESP 16; TEMP 37.2
[2019-03-10] MEDS: oxyCODONE 5 MG Tablet PO (15:56)
--- NOTE | 2019-03-10 16:21 | DCINST_ITS ---
Discharge Diet: No Restrictions Discharge Activity: Return to Normal Activity, May not drive while taking narcotic pain medications., May Shower Lifting Restrictions: 10-20 lb Call your doctor if your incision/area has: Continuous Slow Oozing, Sudden Increased Bleeding, Increased Pain/ Swelling, Increased Redness, Foul Smelling Discharge Remove Dressing in (days):: 3 Cleanse incision/area with: Soap & Water Additional Instructions: If you experience any of the following, contact your healthcare provider. * Bleeding that soaks a pad every hour for 2 hours * Fever 100.4 or higher * Unrelieved incision or abdominal pain * Swelling, redness, discharge or bleeding from your incision or episiotomy site * Your incision begins to separate * Problems urinating (including inability to urinate or burning while urinating). * Visual changes * Severe headache * Flu-like symptoms * Pain or redness in one of both of your breasts * Pain, warmth, tenderness or swelling in your legs, especially the calf area * Frequent nausea and vomiting * Symptoms of depression or anxiety If you experience any of the following, call 911 or go to the nearest Emergency Room. * Chest pain * Problems breathing * Seizure activity * Partial or complete paralysis of a body part, slurred speech, weakness or drooping of the face, or a sudden inability to walk or hold your balance Allergies/Adverse Reactions: Allergies No Known Allergies Allergy (Verified 03/08/19 05:39) Medications to take at Discharge Ferrous Gluconate 324 mg PO BID 03/29/18 Levothyroxine [Synthroid] 50 mcg PO DAILY 03/29/18 Ibuprofen [Motrin] 600 mg PO Q6H PRN PRN #30 tab 03/10/19 Oxycodone [Oxyir] 5 - 10 mg PO Q4H PRN PRN 7 Days #20 tab 03/10/19 Senna/Docusate Sodium [Senokot-S] 1 - 2 tab PO DAILY PRN #60 tab 03/10/19 The following prescriptions were given: Ibuprofen [Motrin] 600 mg PO Q6H PRN PRN #30 tab PRN Reason: Mild Pain (-10/02) Transmission Status: Received by [facility] Oxycodone [Oxyir] 5 - 10 mg PO Q4H PRN PRN 7 Days #20 tab PRN Reason: Mod-Severe Pain (-05/04) Transmission Status: Received by [facility] Senna/Docusate Sodium [Senokot-S] 1 - 2 tab PO DAILY PRN #60 tab PRN Reason: Constipation Transmission Status: Received by [facility]48 Follow-Up: Call to make an appointment with your doctor for an incision check in 1-2 weeks. You will also need a 6 week post- follow up appointment. Test results from this visit will be discussed in further detail at your follow- up appointment, if applicable. Please Follow Up With: Geoffrey Gregg MD When: 1-2 weeks Primary Care Physician: Care Physician,No Primary [Primary Care Provider] -
--- NOTE | 2019-03-10 16:21 | PCM.DCCSEC ---
Discharge Diet: No Restrictions Discharge Activity: Return to Normal Activity, May not drive while taking narcotic pain medications., May Shower Lifting Restrictions: 10-20 lb Call your doctor if your incision/area has: Continuous Slow Oozing, Sudden Increased Bleeding, Increased Pain/ Swelling, Increased Redness, Foul Smelling Discharge Remove Dressing in (days):: 3 Cleanse incision/area with: Soap & Water Additional Instructions: If you experience any of the following, contact your healthcare provider. Bleeding that soaks a pad every hour for 2 hours Fever 100.4 or higher Unrelieved incision or abdominal pain Swelling, redness, discharge or bleeding from your incision or episiotomy site Your incision begins to separate Problems urinating (including inability to urinate or burning while urinating). Visual changes Severe headache Flu-like symptoms Pain or redness in one of both of your breasts Pain, warmth, tenderness or swelling in your legs, especially the calf area Frequent nausea and vomiting Symptoms of depression or anxiety If you experience any of the following, call 911 or go to the nearest Emergency Room. Chest pain Problems breathing Seizure activity Partial or complete paralysis of a body part, slurred speech, weakness or drooping of the face, or a sudden inability to walk or hold your balance Allergies/Adverse Reactions: Allergies No Known Allergies Allergy (Verified 03/08/19 05:39) Medications to take at Discharge Ferrous Gluconate 324 mg PO BID 03/29/18 Levothyroxine [Synthroid] 50 mcg PO DAILY 03/29/18 Ibuprofen [Motrin] 600 mg PO Q6H PRN PRN #30 tab 03/10/19 Oxycodone [Oxyir] 5 - 10 mg PO Q4H PRN PRN 7 Days #20 tab 03/10/19 Senna/Docusate Sodium [Senokot-S] 1 - 2 tab PO DAILY PRN #60 tab 03/10/19 The following prescriptions were given: Ibuprofen [Motrin] 600 mg PO Q6H PRN PRN #30 tab PRN Reason: Mild Pain (1-3) Transmission Status: Received by [facility] Oxycodone [Oxyir] 5 - 10 mg PO Q4H PRN PRN 7 Days #20 tab PRN Reason: Mod-Severe Pain (4-1010) Transmission Status: Received by [facility] Senna/Docusate Sodium [Senokot-S] 1 - 2 tab PO DAILY PRN #60 tab PRN Reason: Constipation Transmission Status: Received by [facility]46 Follow-Up: Call to make an appointment with your doctor for an incision check in 1-2 weeks. You will also need a 6 week post- follow up appointment. Test results from this visit will be discussed in further detail at your follow-up appointment, if applicable. Please Follow Up With: Geoffrey Gregg MD When: 1-2 weeks Primary Care Physician: Care Physician,No Primary [Primary Care Provider] -
--- NOTE | 2019-03-10 18:58 | CASEMGMT ---
Social Work Nursing notifying this social group worker with concerns of mother of baby (MOB) bonding with . Nursing reporting that MOB has been feeding , but infant was noted to have a pretty wet diaper that the nursing staff needed to change. Nursing stating that MOB was also tearful this morning. This social group worker met with MOB in room. This social group worker introducing self as well as socia worker role. MOB open to this social group worker checking in with MOB. MOB confirming to have been tearful this morning. MOB stating to have had a miss communication with father of baby (FOB) and that MOB over thought the situation. MOB stating that MOB and FOB are fine now and have worked through things. MOB stating to believe that everything will be okay, MOB confirming to feel a connection with . MOB noted to be gazing often towards while speaking with this social group worker. When this socia worker broached topic of wet diaper, MOB stating to have been checking prior to every feeding. This social group worker encouraging MOB that maybe diaper will need to be checked more then just prior to feedings, MOB voicing understanding and agreeing with this social group worker. MOB reporting to have transportation to home today and to be planning to discharge to home with . Nursing stating that MOB could stay another day if MOB would need this time. This social group worker communicating to MOB that MOB is able to stay on unit another day, MOB stating it is time for me to go home. MOB stating to miss other children and to want to start the transition to home and life with this . Emotional support provided as well as active listening. No further needs identified at this time. Carol GEE, ARIANA
[2019-03-10 19:40] VITALS: BP 125/85; PULSE 75; RESP 18; TEMP 36.3; O2SAT 99
--- NOTE | 2019-03-11 09:36 | PCM.PN.OB ---
Subjective: Entry for 03/10/19 approximately 0800h No issues overnight. Feels well. Desires discharge to home today. Objective: avss - Physical Exam General: Alert, Oriented x3, Cooperative, No apparent distress HEENT: Atraumatic, Normocephalic Lungs: Clear to auscultation, Normal air movement Cardiovascular: Regular rate, Regular Rhythm, Normal S1, Normal S2 Abdomen: Bowel Sounds Present, Soft, Non Tender, Non-Distended, - - fundus firm and nontender, incisional dressing c/d/i Extremities: No edema, No Calf Tenderness Neurological: Neuro grossly intact Psych/Mental Status: Normal Affect, Appropriate, Alert and oriented to time, place, person, mood and affect Vital Signs Temp Pulse Resp BP Pulse Ox 97.3 F L 75 18 125/85 H 99 03/10/19 19:40 03/10/19 19:40 03/10/19 19:40 03/10/19 19:40 03/10/19 19:40 Oxygen Delivery Method Room Air Weight: 85.5 kg Body Mass Index (BMI) 30.4 Intake and Output for Last 24 Hours 03/09/19 03/10/19 03/11/19 23:59 23:59 23:59 Output Total 2400 / 2400 Balance -2400 / -2400 Medical Necessity - Tobacco Use Smoking Status: Former smoker Assessment/Plan All Active Problems (Last Updated 03/08/19 @ 08:48 by Carlota Ann MD) 39 weeks gestation of (Acute) This is a 23 year-old, G [3], P [3] POD#2 s/p RLTCS, BTL doing well. -d/c home
--- NOTE | 2019-03-11 09:40 | PCM.DC.SUM ---
Discharge Date and Diagnosis Date of Admission: 03/08/19 - Date of Discharge: 03/10/19 Hospital Course and Treatment Operations: - - Primary low transverse C/S, bilateral tubal ligation Procedures: None Summary of Care Provided: The patient is a 23 year old F 3 para 2 admitted at 39 weeks gestational age for scheduled repeat section and tubal sterilization. She had an uncomplicated section with tubal ligation bilaterally. Her postop course was unremarkable and she was discharged to home on postop day #2. - Physical Exam Vital Signs Temp Pulse Resp BP Pulse Ox 97.3 F L 75 18 125/85 H 99 03/10/19 19:40 03/10/19 19:40 03/10/19 19:40 03/10/19 19:40 03/10/19 19:40 Oxygen Delivery Method Room Air Weight: 85.5 kg Body Mass Index (BMI) 30.4 Intake and Output for Last 24 Hours 03/09/19 03/10/19 03/11/19 23:59 23:59 23:59 Output Total 2400 / 2400 Balance -2400 / -2400 Discharge Diet: No Restrictions Discharge Activity: Return to Normal Activity, May not drive while taking narcotic pain medications., May Shower Call your doctor if your incision/area has: Continuous Slow Oozing, Sudden Increased Bleeding, Increased Pain/ Swelling, Increased Redness, Foul Smelling Discharge Remove Dressing in (days):: 3 Cleanse incision/area with: Soap & Water Home Medications: Medications to take at Discharge RX: Ferrous Gluconate 324 mg PO BID 03/29/18 RX: Levothyroxine [Synthroid] 50 mcg PO DAILY 03/29/18 RX: Ibuprofen [Motrin] 600 mg PO Q6H PRN PRN #30 tab 03/10/19 RX: Oxycodone [Oxyir] 5 - 10 mg PO Q4H PRN PRN 7 Days #20 tab 03/10/19 RX: Senna/Docusate Sodium [Senokot-S] 1 - 2 tab PO DAILY PRN #60 tab 03/10/19 Following Prescrptions Were Given to Patient: RX: Ibuprofen [Motrin] 600 mg PO Q6H PRN PRN #30 tab PRN Reason: Mild Pain (-10/02) Transmission Status: Received by [facility] RX: Oxycodone [Oxyir] 5 - 10 mg PO Q4H PRN PRN 7 Days #20 tab PRN Reason: Mod-Severe Pain (-05/04) Transmission Status: Received by [facility] RX: Senna/Docusate Sodium [Senokot-S] 1 - 2 tab PO DAILY PRN #60 tab PRN Reason: Constipation Transmission Status: Received by [facility] Primary Care Physician: Care Physician,No Primary [Primary Care Provider] - Please Follow Up With: Geoffrey Gregg MD When: 1-2 weeks Medical Necessity - Tobacco Use Smoking Status: Former smoker Meaningful Use Info Meaningful Use Diagnoses (Choose all that apply): None applicable
== END 2019-03-10 20:25 | disposition home or self-care (01) | DRG 785 ==
PROVIDERS: Obstetrics & Gynecology; Admitting Provider Obstetrics & Gynecology; Referring Provider Obstetrics & Gynecology; Visit Provider Obstetrics & Gynecology
PROC: 10D00Z1 Extraction of Products of Conception, Low, Open Approach (ICD-10-PCS; CPT 59514; principal; 2019-03-08 07:15)
DX: O34.211 Maternal care for low transverse scar from previous cesarean delivery (principal); O99.02 Anemia complicating childbirth; D64.9 Anemia, unspecified; O99.283 Endocrine, nutritional and metabolic diseases complicating pregnancy, third trimester; E03.9 Hypothyroidism, unspecified; O99.513 Diseases of the respiratory system complicating pregnancy, third trimester; J45.909 Unspecified asthma, uncomplicated; Z87.891 Personal history of nicotine dependence; Z79.890 Hormone replacement therapy; Z30.2 Encounter for sterilization; Z87.730 Personal history of (corrected) cleft lip and palate; Z3A.39 39 weeks gestation of pregnancy; Z37.0 Single live birth
CPT/HCPCS: 80307; 85025; 85027; 85610; 85730; 86850; 86900; 86901; 88302; 99218; J7120; A4216; G0378; J2405